=== PATIENT | female | born 1995 | race Two or more races ===

== ENCOUNTER 2025-01-12 17:58 | Emergency (ER) | payer OTHER ==
[~2025-01-12] VITALS: Ht 154.9 cm; Wt 68.0 kg
[2025-01-12 19:34] LABS: BASO % 0.3 % (0.1-1.2); EOS # 0.10 (0.04-0.54); EOS % 1.1 % (0.7-7.0); LYMPH # 2.27 (1.18-3.74); LYMPH % 24.2 % (19.3-53.1); MEAN PLATELET VOLUME 9.90 fl (9.4-12.4); MONO # 0.86 (0.24-0.82); MONO % 9.2 % (4.7-12.5); NEUT # 6.08 (1.56-6.13); NEUT % 64.9 % (34.0-71.1); RED CELL DISTRIBUTION WIDTH 13.0 % (11.6-14.4)
== END 2025-01-12 21:07 ==
LOC: ER 19:19
PROVIDERS: Emergency Medicine
DX: O26.851 Spotting complicating pregnancy, first trimester (principal); Z3A.11 11 weeks gestation of pregnancy